=== PATIENT | female | born 1985 | race Caucasian/White ===

== ENCOUNTER → 2016-11-23 | Outpatient (CLI) | payer BC ==
--- NOTE | ~2016-11-23 | US85 ---
[facility] A Service [facility] RADIOLOGY TEXT RESULTS PATIENT: HILDA ARAUZ LOCATION: CNIV : 85 UNIT #: [id number] AGE: [address]: JAME COHEN MD SEX: F ORDER DR: [id number] [facility]. [place], [place] [address] [id number] O MR#: [id number] Acc #: [id number] NAME: HILDA ARAUZ : 1985 SEX: F STUDY DATE/TIME: 11/23/2016 11:25 UNIT: CNIV ROOM: STUDY DESCRIPTION: [facility] Attending Physician: Jame Cohen M.D. Referring Physician: Jame Cohen M.D. Primary Care Physician: Evelin Lomax M.D. MEDICAL IMAGING REPORT This report is preliminary unless electronic signature is present EXAM Right lower extremity venous duplex Doppler. INDICATIONS Right thigh pain for 4 days. Palpable lumps in the thigh. 2 weeks . TECHNIQUE Pinedo-scale, color Doppler, spectral ultrasound of the right lower extremity was performed. FINDINGS No deep vein thrombus is identified in the right lower extremity. The common femoral veins to the popliteal veins are widely patent. There is normal compressibility, spontaneous and phasic waveforms. No calf vein thrombus. There is superficial thrombus within some varicose veins associated with a branch off the distal greater saphenous vein. IMPRESSION 1. No evidence of deep vein thrombosis. 2. Thrombus within some superficial varicose veins in the medial right thigh compatible with a superficial vein thrombus. Dictated by... Aashish Pond M.D. THIS IS AN ELECTRONICALLY VERIFIED REPORT [facility] A Service of [facility] RADIOLOGY TEXT RESULTS PATIENT: HILDA ARAUZ LOCATION: CNIV : 85 UNIT #: [id number] AGE: [address]: JAME COHEN MD SEX: F ORDER DR: Aashish Pond M.D. at 11/24/2016 9:54 AM [facility]/marylou TD: 11/23/2016 17:08 JOB #: [id number] MEDICAL IMAGING REPORT Page 1 of 1 COPY
== END | disposition home or self-care (01) ==
LOC: CNIV 10:42
DX: M79.89 Other specified soft tissue disorders (principal); I82.811 Embolism and thrombosis of superficial veins of right lower extremity
CPT/HCPCS: 93971